=== PATIENT | female | born 1990 | race Caucasian/White ===

== ENCOUNTER 2018-10-30 18:13 | Emergency (ER) | payer SELFPAY ==
[~2018-10-30] VITALS: Ht 177.8 cm; Wt 134.4 kg
--- OUTSIDE RECORDS SUMMARY | 2018-10-30 18:16 | XMS REPORT | Summary of Care ---
Author Author [facility] Organization [facility] Address Unknown Phone Unavailable Encounter MICHELLE Kim(JULIENNE) [phone] Date(s): 08/12/15 - 08/12/15 [facility] [id number] [place] [address]- [phone] Discharge Diagnosis: Unspecified ovarian cysts Discharge Diagnosis: Urinary tract infection, site not specified Discharge Disposition: Home Attending Physician: Rochelle Dillon MD Vital Signs Most recent to 1 2 oldest [Reference Range]: Height 177.8 cm (08/12/15 3:08 PM) Most recent to 1 2 oldest [Reference Range]: Temperature Oral 99.1 DegF 98.7 DegF [96.4-99.1 DegF] (08/12/15 5:30 PM) (08/12/15 3:08 PM) Most recent to 1 2 oldest [Reference Range]: Blood Pressure 124/78 mmHg 148/94 mmHg [90-140/60-90 mmHg] (08/12/15 5:30 PM) *HI* (08/12/15 3:08 PM) Most recent to 1 2 oldest [Reference Range]: Respiratory Rate 20 BRMIN 18 BRMIN [14-20 BRMIN] (08/12/15 5:30 PM) (08/12/15 3:08 PM) Most recent to 1 2 oldest [Reference Range]: Peripheral Pulse 89 bpm 100 bpm Rate [60-100 bpm] (08/12/15 5:30 PM) (08/12/15 3:08 PM) Most recent to 1 2 oldest [Reference Range]: Weight 122.727 kg (08/12/15 3:08 PM) Most recent to 1 2 oldest [Reference Range]: Body Mass Index 38.82 m2 (08/12/15 3:08 PM) Problem List Condition Effective Dates Status Health Status Informant ADHD - Attention Active deficit disorder with hyperactivity(Confir med) 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) Kidney Resolved stone(Confirmed) Allergies, Adverse Reactions, Alerts Substance Reaction Severity Status NKDA Active Medications hydromorphone 0.2 mg, 0.2 mL, Route: IVP, Drug form: INJ, ONCE, Dosing Weight 122.727, kg, Senait ority: STAT, Start date: 08/12/15 16:03:00, Stop date: 08/12/15 16:03:00 Start Date: 08/12/15 Stop Date: 08/12/15 Status: Completed hydromorphone 0.2 mg, Route: IVP, ONCE, Dosing Weight 122.727, kg, Priority: STAT, Start date: 08/12/15 17:33:00, Stop date: 08/12/15 17:33:00 Start Date: 08/12/15 Stop Date: 08/12/15 Status: Completed hydromorphone 0.5 mg, 0.5 mL, Route: IVP, Drug form: INJ, ONCE, Dosing Weight 122.727, kg, Senait ority: STAT, Start date: 08/12/15 17:58:00, Stop date: 08/12/15 17:58:00 Start Date: 08/12/15 Stop Date: 08/12/15 Status: Completed ibuprofen 800 mg oral tablet 800 mg=1 tab, PO, Q8H, PRN Fever or Pain, Take with food, # 30 tab, 0 Refill(s) Special Instructions: Take with food Start Date: 08/12/15 Stop Date: 08/22/15 Status: Ordered Keflex 500 mg oral capsule 500 mg=1 cap, PO, QID, X 10 day, # 40 cap, 0 Refill(s) Start Date: 08/12/15 Stop Date: 08/22/15 Status: Ordered ketOROLAC 30 mg, Route: IVP, Drug form: INJ, ONCE, Dosing Weight 122.727, kg, Priority: ST AT, Start date: 08/12/15 17:47:00, Stop date: 08/12/15 17:47:00 Start Date: 08/12/15 Stop Date: 08/12/15 Status: Discontinued meloxicam 15 mg oral tablet 15 mg=1 tab, PO, Daily, PRN Pain, # 30 tab, 1 Refill(s) Start Date: 08/12/15 Status: Ordered ondansetron 4 mg, Route: IVP, Drug form: INJ, ONCE, Dosing Weight 122.727, kg, Priority: STA T, Start date: 08/12/15 16:10:00, Stop date: 08/12/15 16:10:00 Start Date: 08/12/15 Stop Date: 08/12/15 Status: Completed Rocephin 1 gm, Route: IVPB, Drug form: PDR/INJ, ONCE, Dosing Weight 122.727, kg, Priority : STAT, Start date: 08/12/15 17:32:00, Stop date: 08/12/15 17:32:00 Start Date: 08/12/15 Stop Date: 08/12/15 Status: Completed Saline Flush 0.9% 10 mL, Route: IVP, Drug Form: INJ, Dosing Weight 122.727, kg, PRN, PRN Line Flus h, Start date: 08/12/15 15:15:00, Duration: 30 day, Stop date: 09/11/15 14:14:00 Notes: Same as: BD Posiflush Sterile Start Date: 08/12/15 Stop Date: 08/12/15 Status: Discontinued Results ELECTROLYTES Most recent to 1 oldest [Reference Range]: Sodium Lvl [135-145 138 mEq/L mEq/L] (08/12/15 3:43 PM) Potassium Lvl 3.9 mEq/L [3.5-5.1 mEq/L] (08/12/15 3:43 PM) Chloride Lvl [95-109 107 mEq/L mEq/L] (08/12/15 3:43 PM) CO2 [24-32 mEq/L] 23 mEq/L *LOW* (08/12/15 3:43 PM) AGAP [10.0-20.0 11.9 mEq/L mEq/L] (08/12/15 3:43 PM) CHEM PANEL Most recent to 1 oldest [Reference Range]: Creatinine Lvl 1.0 mg/dL [0.5-1.4 mg/dL] (08/12/15 3:43 PM) eGFR 79 mL/min/1.73m2 1 *NA* (08/12/15 3:43 PM) BUN [7-22 mg/dL] 11 mg/dL (08/12/15 3:43 PM) B/C Ratio [6-25] 11 (08/12/15 3:43 PM) Glucose Lvl [70-99 102 mg/dL mg/dL] *HI* (08/12/15 3:43 PM) Total Protein 8.2 g/dL [6.4-8.4 g/dL] (08/12/15 3:43 PM) Albumin Lvl [3.5-5.0 4.3 g/dL g/dL] (08/12/15 3:43 PM) Globulin [2.0-4.0 3.9 g/dL g/dL] (08/12/15 3:43 PM) A/G Ratio [0.7-1.6] 1.1 (08/12/15 3:43 PM) Calcium Lvl 9.3 mg/dL [8.5-10.5 mg/dL] (08/12/15 3:43 PM) ALT [0-65 unit/L] 29 unit/L (08/12/15 3:43 PM) AST [0-37 unit/L] 10 unit/L (08/12/15 3:43 PM) Alk Phos [39-136 75 unit/L unit/L] (08/12/15 3:43 PM) Bili Total [0.2-1.3 0.5 mg/dL mg/dL] (08/12/15 3:43 PM) 1Result Comment: The eGFR is calculated using the CKD-EPI formula. In most young, healthy individuals the eGFR will be >90 mL/min/1.73m2. The eGFR declines with age. An eGFR of 60-89 may be normal in some populations, particularly the elderly, for whom the CKD-EPI formula has not been extensively validated. Use of the eGFR is not recommended in the following populations: Individuals with unstable creatinine concentrations, including patients and those with serious co-morbid conditions. Patients with extremes in muscle mass or diet. The data above are obtained from the National Kidney Disease Education Program ( NKDEP) which additionally recommends that when the eGFR is used in patients with extremes of body mass index for purposes of drug dosing, the eGFR should be mul tiplied by the estimated BMI. ENDOCRINOLOGY Most recent to 1 oldest [Reference Range]: S Preg [Negative] Negative *NA* (08/12/15 3:43 PM) URINE AND STOOL Most recent to 1 oldest [Reference Range]: UA Turbidity [Clear] Slight Cloudy (08/12/15 3:43 PM) UA Color [Yellow] Yellow *NA* (08/12/15 3:43 PM) UA pH [5.0-8.0] 6.0 (08/12/15 3:43 PM) UA Spec Grav 1.025 [<=1.030] (08/12/15 3:43 PM) UA Glucose Negative [Negative] (08/12/15 3:43 PM) UA Blood [Negative] Trace *ABN* (08/12/15 3:43 PM) UA Ketones Trace [Negative] *ABN* (08/12/15 3:43 PM) UA Protein [Negative 30 mg/dL mg/dL] *ABN* (08/12/15 3:43 PM) UA Urobilinogen 1.0 EU/dL [0.1-1.0 EU/dL] (08/12/15 3:43 PM) UA Bili [Negative] Small *ABN* (08/12/15 3:43 PM) UA Leuk Est Moderate [Negative] *ABN* (08/12/15 3:43 PM) UA Nitrite Negative [Negative] (08/12/15 3:43 PM) UA WBC [0-5 /HPF] 6-10 /HPF *ABN* (08/12/15 3:43 PM) UA RBC [0-2 /HPF] 3-5 /HPF *ABN* (08/12/15 3:43 PM) UA Bacteria [None Moderate /HPF Seen /HPF] *ABN* (08/12/15 3:43 PM) UA Sq Epi [Few /LPF] Few /LPF (08/12/15 3:43 PM) UA Mucus [None Seen Few /LPF /LPF] (08/12/15 3:43 PM) HEMATOLOGY Most recent to 1 oldest [Reference Range]: WBC [3.7-10.4 K/CMM] 7.9 K/CMM (08/12/15 3:43 PM) RBC [4.20-5.40 5.05 M/CMM M/CMM] (08/12/15 3:43 PM) Hgb [12.0-16.0 g/dL] 14.5 g/dL (08/12/15 3:43 PM) Hct [36.0-48.0 %] 43.7 % (08/12/15 3:43 PM) MCV [80.0-98.0 fL] 86.6 fL (08/12/15 3:43 PM) MCH [27.0-31.0 pg] 28.8 pg (08/12/15 3:43 PM) MCHC [32.0-36.0 33.2 g/dL g/dL] (08/12/15 3:43 PM) RDW [11.5-14.5 %] 14.1 % (08/12/15 3:43 PM) Platelet [133-450 266 K/CMM K/CMM] (08/12/15 3:43 PM) MPV [7.4-10.4 fL] 9.0 fL (08/12/15 3:43 PM) Segs [45.0-75.0 %] 71.9 % (08/12/15 3:43 PM) Lymphocytes 18.7 % [20.0-40.0 %] *LOW* (08/12/15 3:43 PM) Monocytes [2.0-12.0 8.2 % %] (08/12/15 3:43 PM) Eosinophils [0.0-4.0 0.7 % %] (08/12/15 3:43 PM) Basophils [0.0-1.0 0.5 % %] (08/12/15 3:43 PM) Segs-Bands # 5.7 K/CMM [1.5-8.1 K/CMM] (08/12/15 3:43 PM) Lymphocytes # 1.5 K/CMM [1.0-5.5 K/CMM] (08/12/15 3:43 PM) Monocytes # [0.0-0.8 0.6 K/CMM K/CMM] (08/12/15 3:43 PM) Eosinophils # 0.1 K/CMM [0.0-0.5 K/CMM] (08/12/15 3:43 PM) Immunizations No data available for this section Procedures Procedure Date Related Diagnosis Body Site Ureteroscopy Social History Social History Type Response Alcohol Previous treatment: None. Smoking Status Never smoker; Exposure to Tobacco Smoke None; Cigarette Smoking Last 365 Days No; Reg Smoking Cessation Counseling No Assessment and Plan No data available for this section
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
--- OUTSIDE RECORDS SUMMARY | 2018-10-30 18:16 | XMS REPORT | CCD ---
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
--- OUTSIDE RECORDS SUMMARY | 2018-10-30 18:16 | XMS REPORT | Clinical Summary ---
Author Author [facility] Address Unknown Phone Unavailable Care Team Providers Care Direct Support Specialist Name Role Phone Rivas Orr DO PCP Allergies Not on File Medications Not on file Active Problems Not on file Social History Date Tobacco Use Types Packs/Day Years Used Never Assessed Sex Assigned at Date Recorded Not on file Industry Job Start Date Occupation Not on file Not on file Not on file Travel End Travel History Travel Start No recent travel history available. Last Filed Vital Signs Not on file Plan of Treatment Health Maintenance Due Date Last Done Comments CERVICAL CANCER SCREENING 2012 INFLUENZA VACCINE 05/30/2018 Results Not on fileafter 10/29/2017 Insurance Payer Benefit Subscriber ID Type Phone Address Plan / Group [facility] xxxxxxxxx HMO/PPO THCARE CHOICE/CHO ICE + Advance Directives Patient has advance care planning documents on file. For more information, halie josé contact: Antonio Lambert [address] [place] [address]
--- OUTSIDE RECORDS SUMMARY | 2018-10-30 18:16 | XMS REPORT | CCD ---
Author Author Auto Generated Organization [facility] Address Unknown Phone Unavailable Care Team Providers Care Supervisor Word Processing Name Role Phone Manoj Spann [facility] RP Allergies, Adverse Reactions, Alerts Substance Reaction Status NKDA Active Problem List Condition Effective Dates Status Kidney stone Resolved
--- OUTSIDE RECORDS SUMMARY | 2018-10-30 18:16 | XMS REPORT | Summary of Care ---
Author Author [facility] Organization [facility] Address Unknown Phone Unavailable Encounter MICHELLE Kim(JULIENNE) [phone] Date(s): 09/11/15 - 09/11/15 [facility] [address] [place] [address]- Discharge Diagnosis: Low back pain Discharge Disposition: Home Attending Physician: Esha Galvez DO Vital Signs 1 2 3 Most recent to oldest [Reference Range]: 170.18 cm (09/11/15 7:26 PM) Height 98.6 DegF (09/11/15 7:26 PM) Temperature Oral [96.4-99.1 DegF] 139/81 mmHg (09/11/15 9:03 PM) 188/100 mmHg *HI* (09/11/15 7:30 PM) 177/102 mmHg *HI* (09/11/15 7:26 PM) Blood Pressure [90-140/60-90 mmHg] 16 BRMIN (09/11/15 9:03 PM) 18 BRMIN (09/11/15 7:26 PM) Respiratory Rate [14-20 BRMIN] 101 bpm *HI* (09/11/15 9:03 PM) 115 bpm *HI* (09/11/15 7:26 PM) Peripheral Pulse Rate [60-100 bpm] 128.636 kg (09/11/15 7:26 PM) Weight 44.42 m2 (09/11/15 7:26 PM) Body Mass Index Problem List Condition Effective Dates Status Health Status Informant ADHD - Attention Active deficit disorder with hyperactivity(Confir med) 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) Kidney Resolved stone(Confirmed) Allergies, Adverse Reactions, Alerts Substance Reaction Severity Status Keflex Active NKDA Active Medications ketOROLAC 60 mg, 2 mL, Route: IM, Drug form: INJ, ONCE, Dosing Weight 128.636, kg, Priorit y: STAT, Start date: 09/11/15 20:07:00, Stop date: 09/11/15 20:07:00 Notes: (Same as:Toradol) IV bolus must be given >15 seconds. Give IM administration slowly and deeply into the muscle.Not for use > 4 days MEDICATION WASTE Product Size: 60 mgProduct Wasted: ___ mg Start Date: 09/11/15 Stop Date: 09/11/15 Status: Completed [place] 10/325 oral tablet 1 tab, Route: PO, Drug Form: TAB, Dosing Weight 128.636, kg, ONCE, Start date: 11/11/14 20:07:00, Stop date: 09/11/15 20:07:00 Notes: Do not exceed 4gm/day of acetaminophen. (Same as: [place] 325/10) Start Date: 09/11/15 Stop Date: 09/11/15 Status: Completed Results No data available for this section Immunizations [...]
--- OUTSIDE RECORDS SUMMARY | 2018-10-30 18:16 | XMS REPORT | CCD ---
Author Author Auto Generated Organization [facility] Address Unknown Phone Unavailable Care Team Providers Care Station Attendant Name Role Phone Manoj Spann [facility] RP Allergies, Adverse Reactions, Alerts Substance Reaction Status NKDA Active Problem List Condition Effective Dates Status acid reflux Active ADHD - Attention deficit disorder with hyperactivity Active anxiety,depression Active hypothyroid Active Kidney stone Resolved Medications Medication Instructions Start Date End Date Status gentamicin 120 mg, 100 mL, Route: IVPB, Drug 10/02/2013 10/02/2013 Completed form: INJ, ONCALL, Dosing Weight 120.909, kg, Start date: 10/02/13 7:00:00, Duration: 30 day, Stop date: 11/01/13 6:59:00(Same as Garamycin) Ancef + Sodium 1 gm, Route: IVPB, ONCALL, Dosing 10/02/2013 10/02/2013 Completed Chloride 0.9% IV 100 Weight 120.909, kg, Start date: mL 10/02/13 7:00:00, Duration: 30 day, Stop date: 11/01/13 6:59:00(Same As: Ancef, Kefzol) Lactated Ringers 1,000 mL, Rate: 25 ml/hr, Infuse 10/02/2013 10/02/2013 Discontinued Injection IV 1,000 over: 40 hr, Route: IV, Dosing mL Weight 120.909 kg, Total Volume: 1,000, Start date: 10/02/13 6:52:00, Duration: 1 day, Stop date: 10/03/13 6:51:00 belladonna-opium 1 supp, Route: LA, Dosing Weight 10/02/2013 10/02/2013 Discontinued 16.2 mg-30 mg rectal 120.909, kg, Q6H, PRN Bladder suppository Spasm, Start date: 10/02/13 10:54:00, Duration: 30 day, Stop date: 11/01/13 10:53:00 ketorolac 15 mg, Route: IVP, Q6H, Dosing 10/02/2013 10/02/2013 Discontinued Weight 120.909, kg, Start date: 10/02/13 12:00:00, Duration: 6 doses or times, Stop date: 10/03/13 18:00:00 acetaminophen-hydroc 1 tab, Route: PO, Dosing Weight 10/02/2013 10/02/2013 Discontinued odone 325 mg-10 mg 120.909, kg, Q4H, PRN Pain Score oral tablet 4-6, Start date: 10/02/13 10:54:00, Duration: 30 day, Stop date: 11/01/13 10:53:00 hydromorphone 0.3 mg, Route: IVP, Q3H, Dosing 10/02/2013 10/02/2013 Discontinued Weight 120.909, kg, PRN Pain Score 4-6, Start date: 10/02/13 10:54:00, Duration: 30 day, Stop date: 11/01/13 10:53:00 Vital Signs Most recent to oldest [Reference Range]: 1 2 3 Height 177.8 cm (09/23/2013 16:50:00) Temperature Oral [96.4-99.1 DegF] 98.7 DegF (09/23/2013 17:00:00) Systolic Blood Pressure [90-140 mmHg] 123 mmHg (10/02/2013 13:00:00) 117 mmHg (10/02/2013 12:45:00) 128 mmHg (10/02/2013 12:30:00) Diastolic Blood Pressure [60-90 mmHg] 65 mmHg (10/02/2013 13:00:00) 58 mmHg *LOW* (10/02/2013 12:45:00) 65 mmHg (10/02/2013 12:30:00) Respiratory Rate [14-20 BRMIN] 13 BRMIN *LOW* (10/02/2013 11:15:00) 14 BRMIN (10/02/2013 11:00:00) 17 BRMIN (10/02/2013 10:45:00) Peripheral Pulse Rate [60-100 bpm] 99 bpm (10/02/2013 06:45:00) 91 bpm (09/23/2013 17:00:00) Weight 120.909 kg (09/23/2013 16:50:00) Results URINALYSIS Most recent to oldest [Reference Range]: 1 UA Turbidity [Clear] Marked *ABN* (09/23/2013 16:30:00) UA Color [place] *NA* (09/23/2013 16:30:00) UA pH [5.0-8.0] 7.0 (09/23/2013 16:30:00) UA Spec Grav [<=1.030] 1.011 (09/23/2013 16:30:00) UA Glucose [Negative mg/dL] Negative mg/dL *NA* (09/23/2013 16:30:00) UA Blood [Negative] Large *ABN* (09/23/2013 16:30:00) UA Ketones [Negative mg/dL] Negative mg/dL *NA* (09/23/2013 16:30:00) UA Protein [Negative mg/dL] 30 mg/dL *ABN* (09/23/2013 16:30:00) UA Urobilinogen [0.1-1.0 mg/dL] 4.0 mg/dL *HI* (09/23/2013 16:30:00) UA Bili [Negative] Negative *NA* (09/23/2013 16:30:00) UA Leuk Est [Negative] Trace *ABN* (09/23/2013 16:30:00) UA Nitrite [Negative] Positive *ABN* (09/23/2013 16:30:00) UA WBC [0-5 /HPF] 19 /HPF *HI* (09/23/2013 16:30:00) UA RBC [0-2 /HPF] >182 /HPF *HI* (09/23/2013 16:30:00) UA Sq Epi [Few /LPF] Few /LPF *NA* (09/23/2013 16:30:00) UA Mucus [None Seen /LPF] Few /LPF *NA* (09/23/2013 16:30:00) CHEMISTRY Most recent to oldest [Reference Range]: 1 U Preg [Negative] Negative (10/02/2013 06:30:57) Microbiology Reports PROCEDURE:Culture: Urine STATUS: Auth (Verified) BODY SITE: COLLECTED DATE/TIME: 09/23/2013 16:30:00 SOURCE: Urine, Clean Catch FREE TEXT SOURCE: FINAL REPORTS Final Report 10,000 - 50,000 CFU/mL Escherichia coli PRELIMINARY REPORTS Preliminary Report No Growth; Holding Preliminary Report 10,000 - 50,000 CFU/mL Escherichia coli Susceptibility To Follow SUSCEPTIBILITY REPORT Escherichia coli Antibiotic Vitek Dilution Vitek Interpretation Amikacin Susceptible Ampicillin Resistant Ampicillin/Sulbactam Intermediate Cefazolin Susceptible Cefepime Susceptible Ceftriaxone Susceptible Cefuroxime Susceptible ESBL Confirmation Negative Gentamicin Resistant Levofloxacin Resistant Meropenem Susceptible Nitrofurantoin Resistant Piperacillin/Tazobactam Susceptible Tetracycline Resistant Tobramycin Intermediate Trimethoprim/Sulfamethoxazole Susceptible Procedures Procedures Date Related Diagnosis Ureteroscopy
[2018-10-30] MEDS ORDERED: DEXAMETHASONE SOD PHOS 10 MG/1 ML VIAL INJ ONE (20:30)
[2018-10-30] MEDS ORDERED: KETOROLAC TROMETHAMINE 60 MG/2 ML VIAL IM ONE (20:30)
[2018-10-30] MEDS ORDERED: HYDROMORPHONE 1MG/1ML INJ IV STA (22:34)
--- NOTE | 2018-10-30 22:53 | NUR ---
PATIENT HAS A RIDE HOME, HER MOTHER IS AT BEDSIDE WHICH WILL TAKE PATIENT HOME AFTER THE ADMINISTRATION OF DILAUDID
[2018-10-30] MEDS ORDERED: HYDROMORPHONE 2MG/ML 2 MG/ML ML ONE (23:04)
[2018-10-30 23:52] VITALS: BP 133/89
== END 2018-10-30 23:59 | disposition home or self-care (01) ==
LOC: ER 18:13
DX: M54.5 Low back pain (principal); S39.012A Strain of muscle, fascia and tendon of lower back, initial encounter; X50.1XXA Overexertion from prolonged static or awkward postures, initial encounter; Y92.008 Other place in unspecified non-institutional (private) residence as the place of occurrence of the external cause; Z98.1 Arthrodesis status
CPT/HCPCS: 99283; J1100; J1170; J1885

== ENCOUNTER 2019-05-27 17:59 | Emergency (ER) | payer SELFPAY ==
[~2019-05-27] VITALS: Ht 177.8 cm; Wt 134.3 kg
--- OUTSIDE RECORDS SUMMARY | 2019-05-27 18:02 | XMS REPORT | Clinical Summary ---
Author Author [facility] Organization [facility] Address Unknown Phone Unavailable Care Team Providers Care Snake Charmer Name Role Phone Rivas Orr DO PCP [...] Health Maintenance Due Date Last Done Comments INFLUENZA VACCINE 05/30/2019 Results Not on fileafter 05/26/2018 Insurance Type Payer Benefit Subscriber ID Effective Phone Address Plan / Dates Group H[facility]PP[facility]P THCARE resent CHOICE/CHO ICE + Advance Directives Patient has advance care planning documents on file. For more information, halie josé contact: Antonio Lambert [address] [place] [address]
--- OUTSIDE RECORDS SUMMARY | 2019-05-27 18:02 | XMS REPORT | Clinical Summary ---
Author Author [facility] Address Unknown Phone Unavailable Care Team Providers Care Wireless Team Member Name Role Phone UcheNayana Heriberto PCP Allergies Comments Active Allergy Reactions Severity Noted Date Cephalexin Hives 04/08/2019 Medications End Date Status Medication Sig Dispensed Refills Start Date Active desvenlafaxine succinate Take 100 mg 0 (PRISTIQ) 100 MG 24 hr by mouth tablet daily. Active busPIRone (BUSPAR) 15 MG Take 15 mg by 0 tablet mouth 3 (three) times daily. 04/18/2019 acetaminophen-codeine Take 1-2 15 tablet 0 (TYLENOL #3) 300-30 mg tablets by 9 per tablet mouth every 6 (six) hours as needed for Pain for up to 10 days. Max Daily Amount: 8 tablets 04/15/2019 ondansetron (ZOFRAN-ODT) Take 1 tablet 20 tablet 0 4 MG disintegrating (4 mg total) 9 tablet by mouth every 8 (eight) hours as needed for up to 7 days. 04/18/2019 ibuprofen (ADVIL,MOTRIN) Take 1 tablet 40 tablet 0 600 MG tablet (600 mg 9 total) by mouth every 6 (six) hours as needed for Pain for up to 10 days. Active Problems Not on file Encounters Care Team Description Date Type Specialty Kevin Aguilera MD Thoracic back pain, unspecified back pain laterality, unspecified chronicity (Primary Dx); Tachycardia; Chronic back pain, unspecified back location, unspecified back pain laterality; Radiculopathy, unspecified spinal region 04/08/2019 Emergency Emergency Medicine 04/08/2019 Travel after 05/26/2018 Social History Date Tobacco Use Types Packs/Day Years Used Never Smoker Smokeless Tobacco: Never Used Alcohol Use Drinks/Week oz/Week Comments No Alcohol Habits Answer Date Recorded How often do you have a drink containing alcohol? Never 04/08/2019 How many drinks containing alcohol do you have on Not asked a typical day when you are drinking? How often do you have six or more drinks on one Not asked occasion? Sex Assigned at Date Recorded Not on file Industry Job Start Date Occupation Not on file Not on file Not on file Travel End Travel History Travel Start No recent travel history available. Last Filed Vital Signs Time Taken Vital Sign Reading 04/08/2019 2:51 PM CDT Blood Pressure 143/97 04/08/2019 2:51 PM CDT Pulse 97 04/08/2019 1:58 PM CDT Temperature 37.2 C (98.9 F) 04/08/2019 2:51 PM CDT Respiratory Rate 16 04/08/2019 2:51 PM CDT Oxygen Saturation 98% - Inhaled Oxygen - Concentration 04/08/2019 1:58 PM CDT Weight 133.4 kg (294 lb) 04/08/2019 1:58 PM CDT Height 177.8 cm (5' 10") 04/08/2019 1:58 PM CDT Body Mass Index 42.18 Plan of Treatment Not on file Procedures Comments Procedure Name Priority Date/Time Associated Diagnosis SCREEN, URINE STAT 04/08/2019 2:22 PM CDT URINALYSIS W/ REFLEX STAT 04/08/2019 URINE CULTURE 2:22 PM CDT after 05/26/2018 Results * Urinalysis w/Microscopic + Reflex to Culture (04/08/2019 2:22 PM CDT) Color, UA Yellow [facility] Clarity, UA Clear [facility] Specific [place], UA 1.025 1.001 - 1.035 [facility] pH, UA 5.5 5.0 - 8.0 [facility] Protein, UA Negative Negative [facility] Glucose, UA Negative Negative [facility] Ketones, UA Negative Negative [facility] Bilirubin, UA Negative Negative [facility] Blood, UA Trace (A) Negative [facility] Nitrite, UA Negative Negative [facility] Leukocytes, UA Trace (A) Negative [facility] Urobilinogen, UA 0.2 0.2 - 1.0 mg/dL [facility] RBC, UA <5 /HPF [facility] WBC, UA <5 /HPF [facility] SQUAMOUS EPITHELIAL <5 /HPF [facility] Specimen Source [facility] Specimen Urine Performing Organization Address City/State/Zipcode Phone Number [facility] [address] [place] [phone] [facility] * Screen, urine (04/08/2019 2:22 PM CDT) Preg Test, Ur Negative [facility] Specimen Urine Performing Organization Address City/[facility] Phone Number [facility] [address] [place] [phone] [facility] after 05/26/2018
--- OUTSIDE RECORDS SUMMARY | 2019-05-27 18:03 | XMS REPORT ---
Author Author [facility] Address Unknown Phone Unavailable Care Team Providers Care Locomotive Crane Operator Name Role Phone OBRIEN, KLEVER YASMIN Unavailable Unavailable Payers Payer Name Policy Type Policy Number Effective Date Expiration Date Problems This patient has no known problems. Allergies, Adverse Reactions, Alerts Allergy Name Allergy Type Status Severity Reaction(s) Onset Date Inactive Date Treating Clinician Comments hydrocodone DA Active U 2018-12-01 00:00:00 cephalexin DA Active VT 2018-12-01 00:00:00 fluoxetine DA Active U 2018-12-01 00:00:00 hydrocodone DA Active U 2018-04-07 00:00:00 cephalexin DA Active VT 2018-04-07 00:00:00 fluoxetine DA Active U 2018-04-07 00:00:00 Medications This patient has no known medications. Results Test Description Test Time Test Comments Text Results Atomic Results Result Comments URINALYSIS W/ REFLEX URINE CULTURE 2019-04-08 16:13:00 COLOR (BEAKER) (test aqff=124) Yellow CLARITY (BEAKER) (test kbuy=103) Clear SPECIFIC GRAVITY UA (BEAKER) (test yyjn=834) 1.025 1.001-1.035 PH UA (BEAKER) (test nrnk=147) 5.5 5.0-8.0 PROTEIN UA (BEAKER) (test ylwo=998) Negative Negative GLUCOSE UA (BEAKER) (test qcun=983) Negative Negative KETONES UA (BEAKER) (test ymfx=997) Negative Negative BILIRUBIN UA (BEAKER) (test rvgx=242) Negative Negative BLOOD UA (BEAKER) (test vcct=836) Trace Negative NITRITE UA (BEAKER) (test idqk=564) Negative Negative LEUKOCYTE ESTERASE UA (BEAKER) (test jdex=489) Trace Negative UROBILINOGEN UA (BEAKER) (test vxum=220) 0.2 mg/dL 0.2-1.0 RBC UA-MANUAL (BEAKER) (test saek=7180) <5 /HPF WBC UA-MANUAL (BEAKER) (test zzcq=8219) <5 /HPF SQUAMOUS EPITHELIAL MANUAL (BEAKER) (test cfga=3295) <5 /HPF SOURCE(BEAKER) (test jjmy=9964) SCREEN, [id number] 14:30:00* Test Item Value Reference Range Comments TEST URINE (BEAKER) (test xjop=159) Negative - XR T-SPINE [id number] 18:07:00 FAX: Nayana Das [phone] [place]: St: REG FAX: Polo Llanes MD [phone] Name: CHRIS LOERA [facility] : 1990 Age/S: 28/F [address] [place] [address] Unit #: [id number] Loc: [facility] [place] [address] Phys: Polo Knight MD Acct: [id number] Dis Date: Status: REG ER PHONE #: [phone] Exam Date: 01/28/2019 1800 FAX #: [phone] Reason: back pain with previous surgery EXAMS: CPT CODE: [id number] XR T-SPINE 3V 02986 Study: - XR T-SPINE 3V 01/28/2019 5:33 PM Patient Name: CHRIS LOERA MR: [id number] DATE: 01/28/2019 5:33 PM : 1990; Age: 28 years y/o Female Ordering Physician: Polo Knight MD Clinical Indication: back pain with previous surgery Comparison: CT December 01, 2018 Thoracic spine, 3 Views: No acute fracture, dislocation, or suspicious focal osseous lesion. Minimal multilevel degenerative changes. The soft tissues are normal. If there is further concern, recommend follow-up CT or MRI for complete assessment. SL: [id number] at 1807 Reported and signed by: Daja Mabry D.O. CC: Nayana Ivey MD; Polo Knight MD Technologist: Angeles Gaitan, RT(R)(M) Trnscrd Date/Time/By: 01/28/2019 (1806) : By: [email or web address] Orig Print D/T: S: 01/28/2019 (1809) PAGE 1 Signed Report - CT T-SPINE W/O [id number] 18:59:00 Name: CHRIS LOERA [facility] : 1990 Age/S: 28 / F [address] [place] [address] Unit #: [id number] Loc: [place] [address] Phys: Adriana Garcia CHRISTIAN COUNSELOR Acct: [id number] Dis Date: Status: REG ER PHONE #: [phone] Exam Date: 12/01/2018 183 FAX #: [phone] Reason: back pain, s/p fusion, fall EXAMS: CPT CODE: [id number] CT T-SPINE W/O CONTRAST 80985 PROCEDURE: CT THORACIC AND LUMBAR SPINE WITHOUT CONTRAST INDICATION: Back pain following trauma COMPARISON: None. TECHNIQUE: Multidetector CT imaging of the thoracic and lumbar spine is performed. Multiplanar reconstructions are available. CT imaging performed at this location utilizes radiation dose optimization techniques which include one or more of the following: -Automated exposure control -Adjustment of the mA and/or kV according to patient size -Use of iterative reconstruction technique CT Radiation Dose DLP 1067 mGy-cm FINDINGS: ALIGNMENT AND GENERAL ASSESSMENT: No fracture or malalignment of thoracic or lumbar vertebral bodies. There is been prior L5-S1 fusion with partial L5 laminectomy. Vertebrae are normal in configuration. The posterior elements are intact. The anterior and posterior paraspinal soft tissues are normal. DISC SPACES AND SOFT TISSUES: No focal disc protrusion. No canal stenosis. Exit foramina are patent. VISUALIZED THORAX: The visualized lungs are clear. The visualized mediastinal contents are unremarkable. VISUALIZED ABDOMEN AND RETROPERITONEUM: Incidental cystic structure in the upper pelvis is 4.5 cm, likely associated with the left ovary. No gross abnormality of the kidneys or retroperitoneal tissues visualized IMPRESSION: 1. No acute abnormality of the thoracic or lumbar spine. 2. Previous L5-S1 fusion with L5 laminectomy. 3. No paravertebral soft tissue abnormality. 4. Incidental 4.5 cm cystic structure in the left hemipelvis is incompletely evaluated on this static exam, and likely represents an ovarian cyst. SL: NATHALIA PAGE 1 Signed Report (CONTINUED) Name: CHRIS LOERA [place] : 1990 Age/S: 28 / F [address] [place] [address] Unit #: [id number] Loc: [facility] [address] Phys: Adriana Garcia NP Acct: [id number] Dis Date: Status: REG ER PHONE #: [phone] Exam Date: 12/01/2018 1830 FAX #: [phone] Reason: back pain, s/p fusion, fall EXAMS: CPT CODE: [id number] CT T-SPINE W/O CONTRAST 98354 <Continued> at 1859 Reported and signed by: Ayden Freeman M.D. CC: Nayana Ivey MD; Adriana Garcia NP Technologist:Fallon harper, RT(R)(CT) CTDI: DLP: Trnscb Date/Time: 12/01/2018 (185 9) Matias Orig Print D/T: S: 12/01/2018 (1902) C TDI: DLP: PAGE 2 Signed Report - CT L-SPINE W/O [id number] 18:59:00 Name: CHRIS LOERA [place] : 1990 Age/S: 28 / F [address] [place] [address] Unit #: [id number] Loc: [facility] [address] Phys: Bebe Garcia NP Acct: [id number] Di s Date: Status: REG ER PHONE #: Exam Date: 12/01/20181829 FAX #: Reason: back pain, s/p fusion, fall EXAMS: CPT CODE: [id number] CT L-SPINE W/O CONTRAST 57286 PROCEDURE: CT THORACIC AND LUMBAR SPINE WITHOUT CONTRAST INDICATION: Back pain following t rauma COMPARISON: None. TECHNIQUE: Multidetector CT imaging of the thoracic and lumbar spine is performed. Multiplanar recons tructions are available. CT imaging performed at this location utilizes ra diation dose optimization techniques which include one or more of the foll owing: -Automated exposure control -Adjustment of the mA and/or kV a ccording to patient size -Use of iterative reconstruction technique CT Radiation Dose DLP 1067 mGy-cm FINDINGS: ALIGNMENT AND GE NERAL ASSESSMENT: No fracture or malalignment of thoracic or lumbar verteb ral bodies. There is been prior L5-S1 fusion with partial L5 laminectomy. Vertebrae are normal in configuration. The posterior elements are intac t. The anterior and posterior paraspinal soft tissues are normal. DISC SPACES AND SOFT TISSUES: No focal disc protrusion. No canal s tenosis. Exit foramina are patent. VISUALIZED THORAX: The visua lized lungs are clear. The visualized mediastinal contents are unremarkab le. VISUALIZED ABDOMEN AND RETROPERITONEUM: Incidental cystic stru cture in the upper pelvis is 4.5 cm, likely associated with the left ovary . No gross abnormality of the kidneys or retroperitoneal tissues visualiz ed IMPRESSION: 1. No acute abnormality of the thoracic or lumbar spine. 2. Previous L5-S1 fusion with L5 laminectomy. 3. No paravertebral soft tissue abnormality. 4. Incidental 4.5 cm cystic structure in the left hemipelvis is incompletely evaluated on this static exam, and likely represents an ovarian cyst. SL: NATHALIA PAGE 1 Signed Report (CONTINUED) Name: CHRIS LOERA [facility] : 1990 Age/S: 28 / F [address] [place] [address] Blvd Unit #: [id number] Loc: [facility] [address] Phys: Adriana Garcia CHRISTIAN COUNSELOR Acct: [id number] Dis Date: Status: REG ER PHONE #: [phone] Exam Date: 12/01/20181829 FAX #: [phone] Reason: back pain, s/p fusion, fall EXAMS: CPT CODE: [id number] L-SPINE W/O CONTRAST 14921 <Continued> at 1859 Reported and signed by: Ayden Freeman M.D. CC: Nayana Ivey MD; Adriana Garcia NP Technologist:Fallon harper, RT(R)(CT) CTDI: DLP: Trnscb Date/Time: 12/01/2018 (185 9) [email or web address] Orig Print D/T: S: 12/01/2018 (190) C TDI: DLP: PAGE 2 Signed Report UR HCG [id number] 17:59:00* Test Item Value Reference Range Comments UR HCG QUAL (test code=HCGQLU) NEGATIVE NEGATIVE
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
--- NOTE | 2019-05-27 18:15 | NUR ---
C-COLLAR PLACED ON PT PER DR. PHELPS'S ORDER.
[2019-05-27] MEDS ORDERED: KETOROLAC TROMETHAMINE 60 MG/2 ML VIAL IM NR (21:15)
--- NOTE | 2019-05-27 21:54 | Diagnostic Imaging Report ---
Cervical Spine, 5 views , thoracic spine 3 views, lumbar spine, 4 views HISTORY: Fall. COMPARISON: None. FINDINGS: Cervical spine: Limited sensitivity for detection of subtle fractures and ligamentous abnormalities. On the lateral view, the cervical spine is visualized from the skull base to C6. The alignment is normal. No acute displaced fracture involving the visualized cervical spine. Disc Spaces and Uncovertebral Joints: Mild disc osteophytes. Disc spaces preserved. Facets: Mild sclerotic changes in the facet joints. Thoracic and lumbar spine: Some of the osseous structures are partially obscured by stool and bowel gas. There are five non-rib bearing lumbar vertebral bodies. The alignment of the spine is within normal limits. No displaced fracture or compression deformity is identified. Status post laminectomies of L5 with bilateral transpedicular kevin and screw fixation. Disc Spaces: The disc spaces are well maintained. Disc osteophytes in the thoracic and lumbar spine. Facets: Mild sclerotic changes in the facets of the lumbar spine. IMPRESSION: No acute radiographic abnormality. Mild degenerative changes in the spine. Signed by: Johnny Mishra DO on 05/27/2019 9:51 PM
[2019-05-27] MEDS ORDERED: ORPHENADRINE CITRATE 30 MG/ML VIAL IM ONE (22:45)
[2019-05-27 23:02] VITALS: BP 135/84
== END 2019-05-27 23:30 | disposition home or self-care (01) ==
LOC: ER 17:59
DX: M54.2 Cervicalgia (principal); S16.1XXA Strain of muscle, fascia and tendon at neck level, initial encounter; M54.6 Pain in thoracic spine; M54.5 Low back pain; S33.5XXA Sprain of ligaments of lumbar spine, initial encounter; W17.89XA Other fall from one level to another, initial encounter; Y92.008 Other place in unspecified non-institutional (private) residence as the place of occurrence of the external cause; F41.9 Anxiety disorder, unspecified; F32.9 Major depressive disorder, single episode, unspecified; M43.27 Fusion of spine, lumbosacral region
CPT/HCPCS: 72050; 72072; 72110; 81025; 96372; 99283; J1885; J2360